=== PATIENT | female | born 1935 | race Caucasian/White ===

== ENCOUNTER 2016-12-19 09:25 | Day surgery (SDC) | payer MEDICARE, BC ==
[~2016-12-19] VITALS: Ht 154.9 cm; Wt 61.4 kg
[~2016-12-19 09:25] MED LIST: ALBU8HFA IH; AMLO-342 PO; ASPI81 PO; ATEN25 PO; ATEN50TA PO; ISOS10TA16 PO; LEVO125 PO; METF500T4 PO; OMEP20 PO; ROSU10 PO; VITA1CAP PO
[2016-12-19] MEDS ORDERED: 0.9% SODIUM CHLORIDE 10 ML SYRINGE IVP ONE (09:33)
[2016-12-19 10:02] LABS: CALCIUM, TOTAL 8.9 mg/dL (8.8-10.5); CREATININE 1.06 mg/dL (0.60-1.30); POTASSIUM 4.5 mmol/L (3.5-5.1)
[2016-12-19 10:26] LABS: GLUCOSE COMMENT 1 Doctor Notified; GLUCOSE,POINT OF CARE 113 MG/DL (70-110)
[2016-12-19] MEDS ORDERED: IOVERSOL 350 MG/ML 150 ML VIAL ONE (11:00)
[2016-12-19] MEDS ORDERED: SODIUM CHLORIDE 0.9% 100 ML ONE (11:00)
[2016-12-19] MEDS ORDERED: METOPROLOL TARTRATE 5 MG/5 ML VIAL ONE (11:13)
[2016-12-19] MEDS ORDERED: NITROGLYCERIN 400 MCG/SUBLINGUAL SPRAY 4.9 GM BOTTLE SL ONE (11:13)
== END 2016-12-19 12:10 | disposition home or self-care (01) ==
LOC: SDS 09:25 → EDSTATUS 11:00 → SDS 12:10
PROVIDERS: ATTEND Internal Medicine Cardiovascular Disease
DX: I25.10 Atherosclerotic heart disease of native coronary artery without angina pectoris (principal); I70.0 Atherosclerosis of aorta; J44.9 Chronic obstructive pulmonary disease, unspecified; F17.210 Nicotine dependence, cigarettes, uncomplicated; M54.9 Dorsalgia, unspecified; M25.569 Pain in unspecified knee; Z88.2 Allergy status to sulfonamides; Z90.710 Acquired absence of both cervix and uterus; Z85.820 Personal history of malignant melanoma of skin; Z87.01 Personal history of pneumonia (recurrent); Z85.850 Personal history of malignant neoplasm of thyroid; Z95.828 Presence of other vascular implants and grafts
CPT/HCPCS: 36415; 75574; 80048; 82962; 93005; J3490; J7050; Q9967